=== PATIENT | female | born 2000 | race Caucasian/White ===

== ENCOUNTER 2018-03-27 03:36 | Emergency (ER) | payer BC ==
[~2018-03-27] VITALS: Ht 172.7 cm; Wt 45.4 kg
[~2018-03-27 03:36] MED LIST: CEPH500 PO; HYDPAM50 PO; Zofran Odt8 MG SL
[2018-03-27] MEDS ORDERED: PROG100 PO (04:08)
[2018-03-27 06:28] LABS: Source, Urine Clean Catch
[2018-03-27 06:31] LABS: Bilirubin, Urine Neg (Neg); Blood, Urine Neg (Neg); Glucose Qualitative, Urine Neg (Neg); Ketones, Urine 3+ (Neg); Leukocyte Esterase, Urine 1+ (Neg); Nitrite, Urine Neg (Neg); Protein, Urine Neg (Neg); Specific Gravity, Urine 1.015 (1.003-1.022); Urobilinogen, Urine 1+ (Normal)
[2018-03-27 06:37] LABS: Appearance, Urine Hazy (Clear); Color, Urine Yellow (P-Yellow)
[2018-03-27 06:40] LABS: Amorphous Light (0-Heavy); Bacteria Few /hpf; Red Blood Cells, Urine 0-2 /hpf (0-2); Squamous Epithelial Cells Mod /hpf (Few)
[2018-03-27 06:41] LABS: Mucus Light (0-Heavy)
== END 2018-03-27 08:42 | disposition home or self-care (01) ==
LOC: ER 03:36
PROVIDERS: Emergency Medicine
DX: R10.30 Lower abdominal pain, unspecified (principal); K59.00 Constipation, unspecified; Z79.899 Other long term (current) drug therapy
CPT/HCPCS: 74176; 81000; 81001; 81025; 87086; 99284